=== PATIENT | male | born 2000 | race African-American/Black ===

== ENCOUNTER 2022-10-26 00:32 | Emergency (ER) | payer BC ==
[~2022-10-26] VITALS: Ht 188 cm; Wt 152.3 kg
[2022-10-26 00:33] VITALS: TEMP 97.4
[2022-10-26 01:24] LABS: BASO # 0.1 K/mm3 (0.0-0.2); BASO % 0.5 % (0.0-2.0); EOS # 0.1 K/mm3 (0.0-0.7); GRAN # 7.5 K/mm3 (1.4-6.5); GRAN % 79.5 % (42.2-75.2); HEMATOCRIT 45.9 % (42.0-52.0); HEMOGLOBIN 15.8 g/dl (13.5-18.0); LYMPH # 1.4 K/mm3 (1.2-3.4); LYMPH % 15.3 % (20.0-51.0); MEAN CELL VOLUME 82 fl (80.0-100.0); MEAN CORPUSCULAR HEMOGLOBIN 28 pg (27-31); MEAN CORPUSCULAR HGB CONC 34 g/dl (33.0-37.0); MONO # 0.3 K/mm3 (0.1-0.6); MONO % 3.3 % (1.7-9.3); PLATELET COUNT 224 K/mm3 (130-400); RED BLOOD COUNT 5.62 M/mm3 (4.20-5.60); REDCELL DISTRIBUTION WIDTH-CV 12.6 % (11.5-14.5)
[2022-10-26 01:30] LABS: ALANINE AMINOTRANSFERASE 97 U/L (0-55); ALBUMIN 4.6 gm/dL (3.5-5.0); ALKALINE PHOSPHATASE 67 U/L (40-150); ANION GAP 15 mmol/L (7-16); AST,SGOT 64 U/L (5-34); BILIRUBIN,TOTAL 0.6 mg/dL (0.2-1.2); BLOOD UREA NITROGEN 13 mg/dL (9-21); CALCIUM 10.6 mg/dL (8.4-10.2); CARBON DIOXIDE 20 mmol/L (22-29); CHLORIDE 104 mmol/L (98-107); CREATININE, serum 1.03 mg/dL (0.72-1.25); GLUCOSE 179 mg/dL (70-99); MAGNESIUM 1.7 mg/dL (1.6-2.6); POTASSIUM 4.1 mmol/L (3.5-4.5); SODIUM 139 mmol/L (136-145); TOTAL PROTEIN 7.8 gm/dL (6.2-8.1)
[2022-10-26 01:46] LABS: TROPONIN-I < 0.010 ng/mL (0.00-0.033)
[2022-10-26 03:52] VITALS: BP 140/87; PULSE 92
== END 2022-10-26 03:59 | disposition home or self-care (01) ==
LOC: COL.ER 00:32
PROVIDERS: Emergency Medicine
DX: R20.0 Anesthesia of skin (principal); R20.2 Paresthesia of skin; F17.210 Nicotine dependence, cigarettes, uncomplicated
CPT/HCPCS: Q9967

== ENCOUNTER 2023-11-20 04:08 | Emergency (ER) | payer BC ==
[2023-11-20] MEDS ORDERED: diphenhydrAMINE 50 MG/ML 1 ML VIAL IV ONE (04:30)
[2023-11-20] MEDS ORDERED: ceFAZolin 2 G in Water For Injection,Sterile 20 ML IV ONE (04:30)
[2023-11-20] MEDS ORDERED: Haloperidol Lactate 5 MG/ML VIAL IV ONE ×2 (04:30→04:45)
[2023-11-20] MEDS ORDERED: LORazepam 2 MG/ML 1 ML VIAL IV ONE (04:30)
[2023-11-20] MEDS ORDERED: NS 1,000 ML IV ONE (04:45)
[2023-11-20] MEDS ORDERED: Iohexol 300 - 100 ML VIAL IV ONE (05:17)
[2023-11-20] MEDS ORDERED: NS 50 ML IV SCH (05:17)
[2023-11-20 05:19] LABS: BASO % 0.2 % (0.0-2.0); EOS % 0.2 % (0.0-4.0); GRAN # 15.5 K/mm3 (1.4-6.5); HEMATOCRIT 43.4 % (42.0-52.0); HEMOGLOBIN 15.3 g/dl (13.5-18.0); LYMPH # 1.2 K/mm3 (1.2-3.4); LYMPH % 6.7 % (20.0-51.0); MEAN CELL VOLUME 83 fl (80.0-100.0); MEAN CORPUSCULAR HEMOGLOBIN 29 pg (27-31); MEAN CORPUSCULAR HGB CONC 35 g/dl (33.0-37.0); MEAN PLATELET VOLUME 9.9 fl (7.4-10.4); MONO # 0.7 K/mm3 (0.1-0.6); MONO % 3.8 % (1.7-9.3); PLATELET COUNT 190 K/mm3 (130-400); RED BLOOD COUNT 5.23 M/mm3 (4.20-5.60); REDCELL DISTRIBUTION WIDTH-CV 12.6 % (11.5-14.5)
[2023-11-20 05:21] LABS: INR 1.1 (0.8-3.0); PROTHROMBIN TIME 12.4 SECONDS (9.7-12.8)
[2023-11-20 05:24] LABS: PARTIAL THROMBOPLASTIN TIME 27.6 SECONDS (26.0-37.0)
[2023-11-20 05:33] LABS: ALANINE AMINOTRANSFERASE 42 U/L (0-55); ALBUMIN 4.4 g/dL (3.5-5.0); ALKALINE PHOSPHATASE 64 U/L (40-150); ANION GAP 14 mmol/L (7-16); AST,SGOT 40 U/L (5-34); BILIRUBIN,TOTAL 0.6 mg/dL (0.2-1.2); BLOOD UREA NITROGEN 14 mg/dL (9-21); CALCIUM 9.9 mg/dL (8.4-10.2); CHLORIDE 104 mEq/L (98-107); CREATININE, serum 1.63 mg/dL (0.72-1.25); GLUCOSE 161 mg/dL (70-99); LIPASE 52 U/L (8-78); POTASSIUM 3.5 mEq/L (3.5-4.5); SODIUM 138 mEq/L (136-145); TOTAL PROTEIN 7.4 g/dl (6.2-8.1)
[2023-11-20 05:40] LABS: ALCOHOL(ethanol),MEDICAL < 10 mg/dL (0-10)
[2023-11-20 05:48] LABS: COLLECTION METHOD CATHETER
[2023-11-20 05:58] LABS: PH 5.5 (5.0-8.5); URINE APPEARANCE Clear (CLEAR/HAZY); URINE BLOOD Negative (NEGATIVE); URINE COLOR YELLOW (YELLOW); URINE GLUCOSE Negative (NEGATIVE); URINE KETONE Negative (NEGATIVE); URINE NITRATE Negative (NEGATIVE); URINE PROTEIN(semi-quant) Negative (NEGATIVE); URINE UROBILINOGEN 0.2 E.U/dL (0.2-1.0)
[2023-11-20] MEDS ORDERED: fentaNYL 50 MCG/ML 2 ML VIAL IV ONE ×2 (06:00→09:00)
[2023-11-20 06:02] LABS: TRICYCLIC ANTIDEPRESS URINE NEGATIVE (NEGATIVE)
[2023-11-20 07:45] VITALS: TEMP 98.8
[2023-11-20 09:02] VITALS: BP 127/60; PULSE 86
== END 2023-11-20 09:02 | disposition short-term general hospital (02) ==
LOC: COL.ER 04:08
PROVIDERS: Internal Medicine
DX: S82.301B Unspecified fracture of lower end of right tibia, initial encounter for open fracture type I or II (principal); S82.831B Other fracture of upper and lower end of right fibula, initial encounter for open fracture type I or II; S02.5XXA Fracture of tooth (traumatic), initial encounter for closed fracture; E87.6 Hypokalemia; F07.81 Postconcussional syndrome; E86.0 Dehydration; G92.9 Unspecified toxic encephalopathy; W17.89XA Other fall from one level to another, initial encounter
CPT/HCPCS: J0690; J1200; J1630; J2060; J3010; J7030; Q9967

== ENCOUNTER 2023-12-04 11:07 | Emergency (ER) | payer BC ==
[~2023-12-04] VITALS: Ht 188 cm; Wt 129.5 kg
[2023-12-04 11:45] VITALS: TEMP 98.4
[2023-12-04 12:58] VITALS: BP 129/77; PULSE 92
== END 2023-12-04 13:00 | disposition home or self-care (01) ==
LOC: COL.ER 11:07
DX: S05.32XA Ocular laceration without prolapse or loss of intraocular tissue, left eye, initial encounter (principal); W18.30XA Fall on same level, unspecified, initial encounter